=== PATIENT | male | born 1975 | race Caucasian/White ===

== ENCOUNTER 2019-05-11 02:19 | Emergency (ER) | payer MEDICAID ==
[~2019-05-11] VITALS: Ht 172.7 cm; Wt 86.0 kg
--- NOTE | 2019-05-11 02:38 | NUR ---
[facility] CONTACTED CASE #: [id number]
[2019-05-11] MEDS ORDERED: acetaminophen 325mg tablet PO ONE (03:10)
[2019-05-11 03:39] VITALS: BP 127/74
== END 2019-05-11 04:50 | disposition home or self-care (01) ==
LOC: ER 02:19
DX: S06.0X0A Concussion without loss of consciousness, initial encounter (principal); S01.01XA Laceration without foreign body of scalp, initial encounter; F10.99 Alcohol use, unspecified with unspecified alcohol-induced disorder; Y04.8XXA Assault by other bodily force, initial encounter; Y93.89 Activity, other specified; Y92.89 Other specified places as the place of occurrence of the external cause; Y99.8 Other external cause status; Y90.9 Presence of alcohol in blood, level not specified
CPT/HCPCS: 70450; 99284

== ENCOUNTER 2019-08-09 03:02 | Emergency (ER) | payer MEDICAID ==
[~2019-08-09] VITALS: Ht 172.7 cm; Wt 85.0 kg
[2019-08-09] MEDS ORDERED: LIDOcaine 1% 30ml preserv. free vial IJ ONE (04:15)
[2019-08-09] MEDS ORDERED: HYDR-3965 PO (07:09)
[2019-08-09 07:19] VITALS: BP 140/87
== END 2019-08-09 07:21 | disposition home or self-care (01) ==
LOC: ER 03:03
DX: S63.284A Dislocation of proximal interphalangeal joint of right ring finger, initial encounter (principal); F17.210 Nicotine dependence, cigarettes, uncomplicated; F12.90 Cannabis use, unspecified, uncomplicated; Z79.899 Other long term (current) drug therapy; V29.9XXA Motorcycle rider (driver) (passenger) injured in unspecified traffic accident, initial encounter; Y93.89 Activity, other specified; Y92.488 Other paved roadways as the place of occurrence of the external cause; Y99.8 Other external cause status
CPT/HCPCS: 26770; 73130; 73140; 99284; J2001

== ENCOUNTER 2025-06-14 09:46 | Emergency (ER) | payer MEDICAID, OTHER ==
[~2025-06-14] VITALS: Ht 172.7 cm; Wt 80.0 kg
--- NOTE | 2025-06-14 10:23 | Physician Documentation ---
History of Present Illness ~ Chief Complaint: Leg Laceration Stated Complaint: R LEG LAC Time Seen by MD: 10:19 Primary Medical Doctor: [facility], [place] HPI 50-year-old male who was taking out the garbage this morning when he sustained a cut to the right lateral calf. He is unsure what his last tetanus was. Tetanus Within 5 Years: Yes (2018) Medication Reconciliation Allergies: Coded Allergies: No Known Allergies (Unverified , 08/09/19) Scheduled Cephalexin*Monohydrate* (Keflex*), 1 CAP PO TID Past Medical History Past Medical History: Extremity Fracture Past Surgical History: noncontributory Alcohol Use: None Drug Use: marijuana Lives with: Family Lives In: Home Occupation: employed Review of Systems ROS As stated above in the HPI, otherwise all systems are reviewed and negative. Physical Exam Vital Signs: Temperature: 98.4, Source: Temporal, Heart Rate: 67, Respiratory Rate: 16, BP: 135/81, Pulse Oximetry: 98, Weight: 80.000 Oxygen Flow Rate: 0 Physical Exam General: Alert, no apparent distress. HEENT: PERRL, EOMI, no injection, moist mucous membranes. Neck: Full range of motion. Respiratory: Lungs clear, no respiratory distress. Chest: No accessory muscle use. Cardiovascular: Regular rate and rhythm, no murmurs. Gastrointestinal: Soft, nontender, nondistended. Bowels sounds present. Extremities: Normal range of motion, no deformity. Neurologic: Oriented x4. Psychiatric: Normal mood and affect. Skin: Normal color, warm and dry. No edema, no ecchymosis. 4 cm laceration right lateral lower calf. Procedures Procedure Note Wound to the right lateral calf measuring approximately 4 cm, gaping, subcutaneous tissue exposed. Informed consent obtained for laceration repair. This was accomplished by 1st anesthetizing the wound with a total of 20 mL of 1% lidocaine with epinephrine. Wound thoroughly flushed by civil engineering technician, no foreign bodies identified. Bleeding was difficult to control, and this was ultimately accomplished with a brief application of Surgicel. It was then sutured with a total of nine 4.0 sutures. Progress Results/Orders Results/Orders Orders - RE ADAMS NP Dressing Orders (06/14/25 10:23) Laceration/I&D Tray Set Up (06/14/25 10:23) Wound Care Orders (06/14/25 10:23) Completed Orders - RE ADAMS NP Tetanus/Pertuss/Diph Acell/Pf (Boostrix (06/14/25 10:25) Lidocaine 1% W/Epi 1:100,000 (Xylocaine (06/14/25 10:25) Medications Received in ER Medications (Trade) Dose Ordered Sig/Dyan Route PRN Reason Start Time Stop Time Status Last Admin Dose Admin (Boostrix vaccine syringe) 0.5 ml ONCE ONCE IMVAC 06/14/25 10:25 06/14/25 10:26 DC 06/14/25 10:29 0.5 ML Vital Signs 06/14/25 06/14/25 10:11 12:37 Temp 98.4 98.4 Pulse 67 64 Resp 16 16 B/P (MAP) 135/81 130/84 Pulse Ox 98 99 O2 Flow Rate 0 Medical Decision Making Additional Comments Wound was initially complicated by difficulty controlling bleeding. It is really this was accomplished with direct pressure and Surgicel. The wound was then closed with a total of nine sutures. Patient tolerated well. He was started on Keflex due to the contaminated nature of the wound. He is to return here or go to his primary care or an urgent care for suture removal in 7-10 days. Departure Time of Disposition: 11:17 Disposition: 01 HOME / SELF CARE / HOMELESS Impression: Primary Impression: Laceration Condition: Stable Discharge Instructions: Laceration Care, Adult Additional Instructions: You will need to see urgent care, primary care, or return to the emergency department for suture removal in 7-10 days from today. Take the antibiotics to prevent infection, as this was a dirty injury. Your tetanus was updated. Please return if worse. Referrals: NO PRIMARY CARE PROVIDER (PCP) Prescriptions Cephalexin*Monohydrate* (Keflex*) 500 Mg Capsule 1 CAP PO TID for 5 Days, #15 CAP Prov: RE ADAMS NP 06/14/25 Education Educated: Patient Educated regarding: diagnosis, treatment, prognosis, need for follow up Signature Scribe Signature: x Attestation: The note accurately reflects work and decisions made by me.Re Adams - FILI 06/14/25 10:23 RE ADAMS NP Jun 14, 2025 10:23
[2025-06-14] MEDS: TETanus/Pertussis (Acell)/Diphther VAC/PF (Tdap-Adult) 0.5ml syringe IMVAC ONE (10:29)
[2025-06-14] MEDS: LIDOcaine 1% W/epiNEPHrine 1:100,000 20ml vial SQ ONE (11:14)
[2025-06-14] MEDS ORDERED: CEPH-585 PO (11:18)
[2025-06-14 12:37] VITALS: BP 130/84; PULSE 64; RESP 16; TEMP 98.4; O2SAT 99
== END 2025-06-14 12:35 | disposition home or self-care (01) ==
LOC: ER 09:47
DX: S81.811A Laceration without foreign body, right lower leg, initial encounter (principal); F12.90 Cannabis use, unspecified, uncomplicated; X58.XXXA Exposure to other specified factors, initial encounter; Y93.89 Activity, other specified; Y92.89 Other specified places as the place of occurrence of the external cause; Y99.8 Other external cause status
CPT/HCPCS: 12002; 90471; 90715; 99283; J7030; A6258; A6446; A6449

== ENCOUNTER 2025-06-18 21:12 | Emergency (ER) | payer OTHER ==
[~2025-06-18] VITALS: Ht 172.7 cm; Wt 77.3 kg
[~2025-06-18 21:12] MED LIST: CEPH-585 PO
[2025-06-18 21:39] VITALS: BP 144/86; PULSE 74; RESP 16; TEMP 99; O2SAT 99
== END 2025-06-19 00:47 | disposition left against medical advice (07) ==
LOC: ER 21:12
DX: M79.661 Pain in right lower leg (principal); Z53.21 Procedure and treatment not carried out due to patient leaving prior to being seen by health care provider